=== PATIENT | male | born 2005 | race Caucasian/White ===

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

== ENCOUNTER 2025-04-27 09:04 | Outpatient (CLI) | payer BC, MEDICAID, SELFPAY ==
[2025-04-27 09:17] LABS: Hematocrit 49.5 % (37-53); Hemoglobin 16.70 g/dL (13.2-15.6); Mean Corpuscular HGB Conc 33.7 g/dL (30-55); Mean Corpuscular Hemoglobin 26.8 pg (27-33); Mean Corpuscular Volume 79.5 fl (82-101); Nucleated Red Blood Cells % 0 %; Platelet Count 258 10^3/cmm (157-399); Red Blood Count 6.23 10^6/uL (3.85-5.65); White Blood Count 7.21 10^3/uL (4.5-13.0)
[2025-04-27 09:40] LABS: Estmated Average Glucose 100; Hemoglobin A1C 5.1 % (4.0-6.0)
[2025-04-27 10:05] LABS: Alanine Aminotransferase 34 U/L (0-41); Albumin Level 4.4 g/dL (3.5-5.2); Alkaline Phosphatase 69 U/L (40-130); Anion Gap 15.7 (5-19); Aspartate Amino Transferase 30 U/L (0-40); Blood Urea Nitrogen 8 mg/dL (6-20); Calcium 9.0 mg/dL (8.5-10.5); Carbon Dioxide 25 mmol/L (22-29); Chloride 98 mmol/L (98-107); Cholesterol 179 mg/dL (0-200); Globulin 2.9 g/dL (1.3-4.6); Glucose 92 mg/dL (65-115); HDL Cholesterol 29 mg/dL (60-100); Osmolality Calculated 278 mOsm/kg (285-295); Potassium 3.7 mmol/L (3.5-5.1); Sodium 135 mmol/L (136-145); Thyroid Stimulating Hormone 1.15 uIU/mL (0.27-4.20); Total Protein 7.3 g/dL (6.6-8.7); Triglycerides 114 mg/dL (0-150)
[2025-04-27 10:36] LABS: Free T4 Free Thyroxine 1.22 ng/dL (0.93-1.60)
== END 2025-04-27 09:05 | disposition home or self-care (01) ==
PROVIDERS: PCP Pediatrics Adolescent Medicine; Visit Provider Nurse Practitioner
DX: Z00.00 Encounter for general adult medical examination without abnormal findings (principal); E66.9 Obesity, unspecified
CPT/HCPCS: 36415; 80053; 80061; 82306; 83036; 84439; 84443; 85025